=== PATIENT | female | born 1945 | race Caucasian/White ===

== ENCOUNTER → 2023-09-08 07:40 | Outpatient (REF) | payer MEDICARE, BC, SELFPAY | LOC: RAD 07:40 | PROVIDERS: ATTENDING PHYSICIAN Internal Medicine Endocrinology, Diabetes & Metabolism; FAMILY PHYSICIAN Family Medicine | DX: M81.0 Age-related osteoporosis without current pathological fracture (principal) | CPT/HCPCS: 77080 ==

== ENCOUNTER → 2023-09-25 09:50 | Outpatient (REF) | payer MEDICARE, BC, SELFPAY | LOC: RAD 09:50 | PROVIDERS: ATTENDING PHYSICIAN Internal Medicine Hematology & Oncology; FAMILY PHYSICIAN Family Medicine | DX: C50.411 Malignant neoplasm of upper-outer quadrant of right female breast (principal) | CPT/HCPCS: 74221 ==

== ENCOUNTER → 2023-10-11 06:28 | Day surgery (SDC) | payer MEDICARE, BC, SELFPAY | LOC: GI 06:28 | PROVIDERS: ATTENDING PHYSICIAN Internal Medicine Gastroenterology | DX: K22.5 Diverticulum of esophagus, acquired (principal); K22.2 Esophageal obstruction; K44.9 Diaphragmatic hernia without obstruction or gangrene; K31.89 Other diseases of stomach and duodenum; R13.10 Dysphagia, unspecified; K29.50 Unspecified chronic gastritis without bleeding | CPT/HCPCS: 43249; 88305; 88342 ==

== ENCOUNTER → 2023-11-02 09:49 | Outpatient (REF) | payer MEDICARE, BC, SELFPAY | LOC: RST 09:49 | PROVIDERS: ATTENDING PHYSICIAN Otolaryngology; FAMILY PHYSICIAN Family Medicine | DX: R13.12 Dysphagia, oropharyngeal phase (principal) | CPT/HCPCS: 74230; 92611 ==

== ENCOUNTER 2023-12-01 13:33 | Outpatient (RCR) | payer MEDICARE, BC, SELFPAY | END 2023-12-01 23:59 | disposition home or self-care (01) | LOC: RST 13:33 | PROVIDERS: ATTENDING PHYSICIAN Otolaryngology; FAMILY PHYSICIAN Family Medicine | DX: R13.12 Dysphagia, oropharyngeal phase (principal); Z85.3 Personal history of malignant neoplasm of breast | CPT/HCPCS: 92526; 92610 ==

== ENCOUNTER → 2023-12-25 06:23 | Outpatient (REF) | payer MEDICARE, BC, SELFPAY ==
[2023-12-25 07:42] LABS: Blood Urea Nitrogen 23 mg/dl (7-17); Calcium 9.9 mg/dl (8.4-10.2); Carbon Dioxide 33 mmol/L (22-30); Chloride 105 mmol/L (98-107); Glucose 86 mg/dl (70-99); Potassium 4.4 mmol/L (3.5-5.1); Sodium 142 mmol/L (135-145); eGFR > 60.00
== END ==
LOC: REG 06:23
PROVIDERS: ATTENDING PHYSICIAN Internal Medicine Gastroenterology; FAMILY PHYSICIAN Family Medicine
DX: R13.12 Dysphagia, oropharyngeal phase (principal)
CPT/HCPCS: 36415; 80048

== ENCOUNTER 2023-12-27 14:34 | Outpatient (RCR) | payer MEDICARE, BC, SELFPAY | END 2023-12-27 23:59 | disposition home or self-care (01) | LOC: RST 14:34 | PROVIDERS: ATTENDING PHYSICIAN Otolaryngology; FAMILY PHYSICIAN Family Medicine | DX: R13.12 Dysphagia, oropharyngeal phase (principal) | CPT/HCPCS: 70491; 92526; Q9967 ==

== ENCOUNTER 2024-01-01 15:56 | Outpatient (RCR) | payer MEDICARE, BC, SELFPAY | END 2024-01-01 23:59 | disposition home or self-care (01) | LOC: RST 15:56 | PROVIDERS: ATTENDING PHYSICIAN Otolaryngology; FAMILY PHYSICIAN Family Medicine | DX: R13.12 Dysphagia, oropharyngeal phase (principal); Z85.3 Personal history of malignant neoplasm of breast | CPT/HCPCS: 92526 ==

== ENCOUNTER → 2024-01-18 10:14 | Outpatient (REF) | payer MEDICARE, BC, SELFPAY | LOC: REG 10:14 | PROVIDERS: ATTENDING PHYSICIAN Otolaryngology; FAMILY PHYSICIAN Family Medicine; REFERRING PHYSICIAN Internal Medicine Gastroenterology | DX: R13.10 Dysphagia, unspecified (principal) | CPT/HCPCS: 36415; 86041 ==

== ENCOUNTER 2024-02-16 13:38 | Outpatient (RCR) | payer MEDICARE, BC, SELFPAY | END 2024-02-16 23:59 | disposition home or self-care (01) | LOC: RST 13:38 | PROVIDERS: ATTENDING PHYSICIAN Otolaryngology; FAMILY PHYSICIAN Family Medicine | DX: R13.12 Dysphagia, oropharyngeal phase (principal); Z85.3 Personal history of malignant neoplasm of breast | CPT/HCPCS: 92526 ==

== ENCOUNTER → 2024-02-19 16:10 | Outpatient (REF) | payer MEDICARE, BC, SELFPAY | LOC: RAD 16:10 | PROVIDERS: ATTENDING PHYSICIAN Family Medicine | DX: M70.22 Olecranon bursitis, left elbow (principal) | CPT/HCPCS: 73080 ==

== ENCOUNTER → 2024-03-29 06:33 | Outpatient (REF) | payer MEDICARE, BC, SELFPAY ==
[2024-03-29 07:48] LABS: % Basophils 0.7 % (0-2); % Eosinophils 2.3 % (0-6); % Immature Granulocytes 0.4 % (0-0.5); % Lymphocytes 19.3 % (20.5-51.1); % Monocytes 6.3 % (1.7-9.3); Absolute Eosinophils 0.1 10^3/uL (0-0.7); Absolute Lymphocytes 1.1 10^3/uL (1.2-3.4); Absolute Monocytes 0.4 10^3/uL (0.1-0.6); Absolute Neutrophils 3.9 10^3/uL (1.4-6.5); Mean Corp Hgb Conc. 33.3 g/dL (33.0-37.0); Mean Platelet Volume 10.4 fL (7.4-10.4); Nucleated Red Blood Cells % 0 %; Platelet Count 210 10^3/uL (130-400); Red Blood Cell Count 3.75 10^6/uL (4.20-5.40); Red Cell Dist. Width 13.3 % (11.5-14.5); White Blood Cell Count 5.6 10^3/uL (4.8-10.8)
[2024-03-29 08:30] LABS: Calcium 9.8 mg/dl (8.4-10.2); Erythrocyte Sed Rate 19 mm/hour (0-20)
[2024-03-29 08:31] LABS: ALT (SGPT) 22 U/L (0-35); AST (SGOT) 29 U/L (14-36); Albumin 3.8 g/dl (3.5-5.0); Alkaline Phosphatase 52 U/L (38-126); Blood Urea Nitrogen 22 mg/dl (7-17); Calcium 9.7 mg/dl (8.4-10.2); Carbon Dioxide 32 mmol/L (22-30); Chloride 102 mmol/L (98-107); Creatine Phosphokinase 88 U/L (30-135); Glucose 85 mg/dl (70-99); HDL Cholesterol 50 mg/dl; Iron 76 ug/dl (37-170); LDL Cholesterol, Calculated 104 mg/dl; Potassium 3.9 mmol/L (3.5-5.1); Sodium 141 mmol/L (135-145); Total Bilirubin 0.9 mg/dl (0.2-1.3); Total CK 88 U/L (30-135); Total Cholesterol 173 mg/dl (50-199); Total Protein 6.3 g/dl (6.3-8.2); Triglyceride 96 mg/dl (10-149); Very Low Density Lipoprotein 19 mg/dl (0-30); eGFR > 60.00
[2024-03-29 08:32] LABS: C-Reactive Protein < 5.00 mg/L (0.0-10.00)
[2024-03-29 08:41] LABS: Percent Saturation 27 % (20-50); Total Iron Binding Capacity 280 ug/dl (265-497)
[2024-03-29 08:49] LABS: Vitamin D, 25-OH*** 70.6 ng/mL (30-80)
[2024-03-29 09:03] LABS: TSH Reflex To Free T4 0.82 uIU/ml (0.47-4.68)
[2024-03-29 09:12] LABS: CKMB 2.5 ng/ml (0.0-2.4)
[2024-03-29 09:39] LABS: Folate > 20.0 ng/ml (2.76-20); Vitamin B12 968 pg/ml (239-931)
[2024-03-29 11:21] LABS: Syphilis/T. pallidum Ab Reflex Negative (Negative)
[2024-03-30 13:11] LABS: Intact PTH 56.5 pg/ml (13.6-85.8)
[2024-03-30 20:19] LABS: Aldolase 3.4 U/L (1.2-7.6)
[2024-03-31 03:20] LABS: Lipoprotein a (Lp a) <6 mg/dL (<=29)
[2024-04-01 02:06] LABS: SSA 52 (Ro)(ENA) Ab, IgG 21 AU/mL (0-40); SSA 60 (Ro)(ENA) Ab, IgG 0 AU/mL (0-40); SSB (La)(ENA) Ab, IgG 0 AU/mL (0-40)
== END ==
LOC: REG 06:33
PROVIDERS: ATTENDING PHYSICIAN Psychiatry & Neurology Neurology; FAMILY PHYSICIAN Family Medicine; REFERRING PHYSICIAN Internal Medicine Endocrinology, Diabetes & Metabolism
DX: M81.0 Age-related osteoporosis without current pathological fracture (principal); E78.00 Pure hypercholesterolemia, unspecified; E04.2 Nontoxic multinodular goiter; E61.1 Iron deficiency; E78.2 Mixed hyperlipidemia; Z00.00 Encounter for general adult medical examination without abnormal findings; R13.10 Dysphagia, unspecified; D51.9 Vitamin B12 deficiency anemia, unspecified; D51.8 Other vitamin B12 deficiency anemias
CPT/HCPCS: 36415; 80053; 80061; 82085; 82306; 82550; 82553; 82607; 82652; 82746; 83540; 83550; 83695; 83970; 84155; 84165; 84425; 84443; 84446; 85025; 85652; 86140; 86235; 86255; 86366; 86618; 86780

== ENCOUNTER → 2024-04-11 06:39 | Outpatient (REF) | payer MEDICARE, BC, SELFPAY | LOC: RAD 06:39 | PROVIDERS: ATTENDING PHYSICIAN Family Medicine | DX: Z87.891 Personal history of nicotine dependence (principal); Z12.2 Encounter for screening for malignant neoplasm of respiratory organs | CPT/HCPCS: 71250 ==

== ENCOUNTER → 2024-04-28 06:44 | Outpatient (REF) | payer MEDICARE, BC, SELFPAY | LOC: MRI 06:44 | PROVIDERS: ATTENDING PHYSICIAN Psychiatry & Neurology Neurology | DX: R13.10 Dysphagia, unspecified (principal) | CPT/HCPCS: 70551 ==

== ENCOUNTER 2024-06-27 17:55 | Emergency (ER) | payer MEDICARE, BC, SELFPAY ==
[2024-06-27 17:56] VITALS: BP 152/80
[2024-06-28 01:30] VITALS: BP 143/81
--- NOTE | 2024-06-28 01:31 | ED.GENMED ---
History of Present Illness
General
Chief Complaint: Musculo-Skeletal Complaint
Time Seen by Provider: 06/28/24 01:06
History of Present Illness
History of Present Illness:
Patient is a 79-year-old woman with history of esophageal restrictions, breast cancer in remission presenting to the emergency department back pain. Patient states for the past few days she has been having left lower back pain. She states that she
has been bending multiple times a day wrapping give some cleaning. She felt as if there was a lump in the back of her. She denies any redness. No fevers or chills. No numbness tingling. No saddle anesthesia no urinary retention or urinary
incontinence. She has taken Advil at home which does provide relief. Of note patient does state that she has had a 15 pound weight loss however attributed to her esophageal stricture and unable to eat. She denies any night sweats or diaphoresis.
She has been following her oncologist every 6 months and there are no concerning spots.
Past History
Past History
ED Past Medical History: Cancer
ED Past Surgical History: None
Social History
Tobacco: Non-smoker
Alcohol: None
Phy Exam
Physical Exam
Physical Exam:
GENERAL: in no acute distress
HEENT: normocephalic, extraocular movements intact, moist oral mucosa
NECK: normal inspection
Back: No midline spinal tenderness, mild tenderness over left lower back, scoliosis is evident
RESPIRATORY: no respiratory distress, clear to auscultation bilaterally
CARDIOVASCULAR: regular rate and rhythm
ABDOMEN/: soft, non-distended, non-tender to palpation, no rebound or guarding
EXTREMITIES: non-tender, no edema/swelling
NEUROLOGIC: awake and alert, moves all extremities
SKIN: warm
Course
Orders/Labs/Results
Orders:
Orders
06/27/24 18:03
CR Thoracic Spine 3 Views Urgent
Comment:
Reason For Exam: pain
Vital Signs
Initial and Last Documented VS:
Initial Vital Signs
Temp Pulse Resp BP Pulse Ox
98.0 F 86 20 152/80 98
06/27/24 17:56 06/27/24 17:56 06/27/24 17:56 06/27/24 17:56 06/27/24 17:56
Last Documented Vital Signs
Temp Pulse Resp BP Pulse Ox
98.0 F 86 20 152/80 98
06/27/24 17:56 06/27/24 17:56 06/27/24 17:56 06/27/24 17:56 06/27/24 17:56
MDM/Problems Addressed
Differential Diagnosis Includes:
Patient is a 79-year-old woman presenting to the emergency department left lower back pain. Vitals unremarkable and exam does show mild tenderness over left lower back. The area of swelling is mostly bony involvement with overlying muscle that is
slightly inflamed. X-ray was obtained prior to my evaluation which per my interpretation does show significant scoliosis. The area where she states is swollen and does follow the curvature of the x-ray of her spine. I did update patient on this
and she does state that maybe that was always there and she is noticing it today secondary to the pain. We did discuss possibility of malignancy or bony outgrowth though less likely given the x-ray is unremarkable. We did discuss obtaining CT scan
however will hold off and patient will obtain outpatient symptoms do not improve. I did offer pain control however patient declined at this time. Will discharge at this time. Will give her spine surgery follow-up in case pain worsens and patient
needs steroid shots. All questions answered. Patient stable for discharge at this time.
*Critical Care Note
Total Time (30-74mins, 75-104mins- exclusive of procedures): Not Applicable
ED Attending Note
-
Portions of this chart may have been created with voice recognition software.� Occasional wrong word or��sound alike� substitutions may have occurred due to the inherent limitations of voice recognition software.
Discharge Plan
Departure
Patient Disposition: Home (Routine Discharge)
Date of Disposition: 06/28/24
Time of Disposition: 01:29
Patient with high blood pressure during this ER visit?: No
Discharge Problem:
Back pain
Instructions: Muscle Strain (DC), Active Range of Motion Exercises, Back and Hips
Prescriptions:
No Action
apixaban [Eliquis] 2.5 MG tablet
2.5 mg PO BID
cholecalciferol (vitamin D3) 2,000 UNITS tablet
2,000 units PO DAILY
Referrals:
Rohit Jimenez Jr., DO [Family Provider] -
Christiana Rodriguez MD [Active] -
Activity Restrictions/Additional Instructions:
We discussed pain medications:
You may take Tylenol (also known as Acetaminophen) for pain.
You may take 1000mg Acetaminophen (two extra-strength tablets) per dose, which should be taken every 6-8 hours, or three times a day.
If you have normal strength Tylenol, you can take 650mg (two normal strength tablets) every 4-6 hours.
Do not take more than 3,000mg (3 grams) of Acetaminophen per day.
Never take more than as directed on the bottle.
You may also take Ibuprofen (also known as Motrin or Advil). If taking with Tylenol, alternate and take between dosing.
You may take 400-800mg of Ibuprofen per dose, which should be taken every 6-8 hours.
Do not take more than 3200mg (3.2 grams) of Ibuprofen per day.
You may also benefit from using a Lidocaine Patch (also known as 'Salon Pas'), which is an over the counter pain patch.
Place it just over the site of pain, avoiding areas of skin damage, as per instructions on the patch.
Please see your primary care doctor soon to be reevaluated and to make sure that you are improving. We have included information about establishing care with a doctor if you do not have one.
We talked about your evaluation, diagnosis, and treatment in the Emergency Department today. You must see your primary doctor for recheck and followup care in order to evaluate your progress or any changes. Have your doctor recheck the test
results/information from the ED visit. As discussed, RETURN to the ED if you develop worsening/changing symptoms or have no improvement in symptoms after the treatments provided.
Interventions
Interventions:
*Risk Screen - Suicide Last Done: 06/27/24 17:56
*General Assessment Last Done: 06/27/24 17:56
*Neglect/Abuse Screening Last Done: 06/27/24 17:56
*ED COVID-19 Vaccine History Last Done: 06/27/24 19:20
ED-Musculoskeletal Assessment Last Done: 06/27/24 19:20
Discharge Date and Time
Print Language: LAO
== END 2024-06-28 01:45 | disposition home or self-care (01) ==
LOC: EMR 17:55
PROVIDERS: EMERGENCY PHYSICIAN Student in an Organized Health Care Education/Training Program; FAMILY PHYSICIAN Family Medicine
DX: M54.50 Low back pain, unspecified (principal); M41.9 Scoliosis, unspecified; Z85.3 Personal history of malignant neoplasm of breast
CPT/HCPCS: 99283; 72072

== ENCOUNTER → 2024-07-05 10:14 | Outpatient (REF) | payer MEDICARE, BC, SELFPAY ==
[2024-07-05 16:24] LABS: Blood Urea Nitrogen 21 mg/dl (7-17); Calcium 10.1 mg/dl (8.4-10.2); Carbon Dioxide 34 mmol/L (22-30); Chloride 100 mmol/L (98-107); Glucose 89 mg/dl (70-99); Potassium 3.8 mmol/L (3.5-5.1); Sodium 140 mmol/L (135-145); eGFR > 60.00
== END ==
LOC: REG 10:14
PROVIDERS: ATTENDING PHYSICIAN Registered Nurse; FAMILY PHYSICIAN Family Medicine
DX: M54.50 Low back pain, unspecified (principal)
CPT/HCPCS: 36415; 80048

== ENCOUNTER → 2024-07-09 13:26 | Outpatient (REF) | payer MEDICARE, BC, SELFPAY | LOC: RAD 13:26 | PROVIDERS: ATTENDING PHYSICIAN Registered Nurse | DX: M54.50 Low back pain, unspecified (principal); R22.2 Localized swelling, mass and lump, trunk | CPT/HCPCS: 74177; Q9967 ==

== ENCOUNTER 2024-08-01 13:56 | Outpatient (RCR) | payer MEDICARE, BC, SELFPAY | END 2024-08-01 23:59 | disposition home or self-care (01) | LOC: RPT 13:56 | PROVIDERS: ATTENDING PHYSICIAN Registered Nurse; FAMILY PHYSICIAN Family Medicine | DX: M54.59 Other low back pain (principal); Z73.6 Limitation of activities due to disability | CPT/HCPCS: 97110; 97112; 97162 ==

== ENCOUNTER 2024-08-06 06:36 | Day surgery (SDC) | payer MEDICARE, BC, SELFPAY ==
[2024-08-06] VITALS (8 sets, daily range): BP systolic 84–106; BP diastolic 45–61; BMI 16.2
== END 2024-08-06 11:25 | disposition home or self-care (01) ==
LOC: SDS 06:36
PROVIDERS: ATTENDING PHYSICIAN Internal Medicine Gastroenterology
PROC: 0D758ZZ Dilation of Esophagus, Via Natural or Artificial Opening Endoscopic (ICD-10-PCS; 2024-08-06)
DX: K22.2 Esophageal obstruction (principal); K44.9 Diaphragmatic hernia without obstruction or gangrene
CPT/HCPCS: 43248

== ENCOUNTER → 2024-08-13 11:14 | Outpatient (REF) | payer MEDICARE, BC, SELFPAY ==
[2024-08-13 13:34] LABS: % Basophils 0.3 % (0-2); % Eosinophils 0.1 % (0-6); % Immature Granulocytes 0.8 % (0-0.5); % Lymphocytes 6.2 % (20.5-51.1); % Neutrophils 85.6 % (42.2-75.2); Absolute Basophils 0.1 10^3/uL (0-0.2); Absolute Immature Granulocytes 0.1 10^3/uL (0-0.05); Absolute Lymphocytes 1.1 10^3/uL (1.2-3.4); Absolute Monocytes 1.3 10^3/uL (0.1-0.6); Absolute Neutrophils 15.8 10^3/uL (1.4-6.5); Hematocrit 32.2 % (37.0-47.0); Hemoglobin 10.8 g/dL (12.0-16.0); Mean Corp Hgb Conc. 33.5 g/dL (33.0-37.0); Mean Corpuscular Hgb 32.2 pg (27.0-31.0); Mean Corpuscular Volume 96.1 fL (81.0-99.0); Nucleated Red Blood Cells % 0 %; Platelet Count 455 10^3/uL (130-400); Red Blood Cell Count 3.35 10^6/uL (4.20-5.40); Red Cell Dist. Width 13.2 % (11.5-14.5); White Blood Cell Count 18.4 10^3/uL (4.8-10.8)
[2024-08-13 14:44] LABS: ALT (SGPT) 46 U/L (0-35); AST (SGOT) 39 U/L (14-36); Albumin 3.2 g/dl (3.5-5.0); Alkaline Phosphatase 126 U/L (38-126); Blood Urea Nitrogen 18 mg/dl (7-17); Calcium 9.6 mg/dl (8.4-10.2); Carbon Dioxide 31 mmol/L (22-30); Chloride 93 mmol/L (98-107); Glucose 79 mg/dl (70-99); Potassium 4.1 mmol/L (3.5-5.1); Sodium 135 mmol/L (135-145); Total Bilirubin 1.2 mg/dl (0.2-1.3); Total Protein 6.6 g/dl (6.3-8.2); eGFR > 60.00
== END ==
LOC: REG 11:14
PROVIDERS: ATTENDING PHYSICIAN Nurse Practitioner Adult Health
DX: R05.1 Acute cough (principal)
CPT/HCPCS: 36415; 71046; 80053; 85025

== ENCOUNTER → 2024-09-18 06:19 | Outpatient (REF) | payer MEDICARE, BC, SELFPAY ==
[2024-09-18 07:12] LABS: % Basophils 1.1 % (0-2); % Eosinophils 2.7 % (0-6); % Immature Granulocytes 0.4 % (0-0.5); % Lymphocytes 31.3 % (20.5-51.1); % Monocytes 7.3 % (1.7-9.3); % Neutrophils 57.2 % (42.2-75.2); Absolute Basophils 0.1 10^3/uL (0-0.2); Absolute Eosinophils 0.1 10^3/uL (0-0.7); Absolute Lymphocytes 1.4 10^3/uL (1.2-3.4); Absolute Monocytes 0.3 10^3/uL (0.1-0.6); Absolute Neutrophils 2.6 10^3/uL (1.4-6.5); Hematocrit 35.7 % (37.0-47.0); Hemoglobin 11.1 g/dL (12.0-16.0); Mean Corp Hgb Conc. 31.1 g/dL (33.0-37.0); Mean Corpuscular Hgb 30.6 pg (27.0-31.0); Mean Corpuscular Volume 98.3 fL (81.0-99.0); Mean Platelet Volume 9.2 fL (7.4-10.4); Nucleated Red Blood Cells % 0 %; Platelet Count 259 10^3/uL (130-400); Red Blood Cell Count 3.63 10^6/uL (4.20-5.40); White Blood Cell Count 4.5 10^3/uL (4.8-10.8)
[2024-09-18 07:44] LABS: ALT (SGPT) 16 U/L (0-35); AST (SGOT) 28 U/L (14-36); Albumin 3.4 g/dl (3.5-5.0); Alkaline Phosphatase 62 U/L (38-126); Blood Urea Nitrogen 14 mg/dl (7-17); Calcium 9.6 mg/dl (8.4-10.2); Carbon Dioxide 33 mmol/L (22-30); Chloride 105 mmol/L (98-107); Glucose 87 mg/dl (70-99); HDL Cholesterol 56 mg/dl; LDL Cholesterol, Calculated 108 mg/dl; Total Bilirubin 1.1 mg/dl (0.2-1.3); Total Cholesterol 188 mg/dl (50-199); Total Protein 6.6 g/dl (6.3-8.2); Triglyceride 122 mg/dl (10-149); Very Low Density Lipoprotein 24 mg/dl (0-30); eGFR > 60.00
[2024-09-18 07:53] LABS: Sodium 140 mmol/L (135-145)
== END ==
LOC: RAD 06:19
PROVIDERS: ATTENDING PHYSICIAN Family Medicine
DX: E78.00 Pure hypercholesterolemia, unspecified (principal); D64.9 Anemia, unspecified; Z13.1 Encounter for screening for diabetes mellitus; Z87.01 Personal history of pneumonia (recurrent); R05.1 Acute cough
CPT/HCPCS: 36415; 71046; 80053; 80061; 82728; 85025

== ENCOUNTER → 2024-09-24 10:19 | Outpatient (REF) | payer MEDICARE, BC, SELFPAY | LOC: HWRAD 10:19 | PROVIDERS: ATTENDING PHYSICIAN Family Medicine | DX: R93.89 Abnormal findings on diagnostic imaging of other specified body structures (principal) | CPT/HCPCS: 71250 ==

== ENCOUNTER 2024-09-30 09:38 | Outpatient (RCR) | payer MEDICARE, BC, SELFPAY | END 2024-09-30 23:59 | disposition home or self-care (01) | LOC: RPT 09:38 | PROVIDERS: ATTENDING PHYSICIAN Registered Nurse; FAMILY PHYSICIAN Family Medicine | DX: M54.59 Other low back pain (principal); Z73.6 Limitation of activities due to disability | CPT/HCPCS: 72148; 97010; 97110; 97112 ==

== ENCOUNTER → 2024-10-09 13:38 | Outpatient (REF) | payer MEDICARE, BC, SELFPAY | LOC: RAD 13:38 | PROVIDERS: ATTENDING PHYSICIAN Internal Medicine Endocrinology, Diabetes & Metabolism; FAMILY PHYSICIAN Family Medicine | DX: E04.2 Nontoxic multinodular goiter (principal) | CPT/HCPCS: 76536 ==

== ENCOUNTER 2024-10-23 09:48 | Outpatient (RCR) | payer MEDICARE, BC, SELFPAY | END 2024-10-23 23:59 | disposition home or self-care (01) | LOC: RPT 09:48 | PROVIDERS: ATTENDING PHYSICIAN Registered Nurse; FAMILY PHYSICIAN Family Medicine | DX: M54.59 Other low back pain (principal); Z73.6 Limitation of activities due to disability; M62.81 Muscle weakness (generalized); M41.9 Scoliosis, unspecified; Z85.3 Personal history of malignant neoplasm of breast | CPT/HCPCS: 97110; 97112 ==

== ENCOUNTER → 2024-11-04 12:16 | Outpatient (REF) | payer MEDICARE, BC, SELFPAY | LOC: HWRAD 12:16 | PROVIDERS: ATTENDING PHYSICIAN Internal Medicine Critical Care Medicine; FAMILY PHYSICIAN Family Medicine | DX: R91.1 Solitary pulmonary nodule (principal) | CPT/HCPCS: 71250 ==

== ENCOUNTER 2024-11-11 08:40 | Outpatient (RCR) | payer MEDICARE, BC, SELFPAY | END 2024-11-11 14:53 | disposition home or self-care (01) | LOC: RPT 08:40 | PROVIDERS: ATTENDING PHYSICIAN Registered Nurse; FAMILY PHYSICIAN Family Medicine | DX: M54.59 Other low back pain (principal); M62.81 Muscle weakness (generalized); M41.9 Scoliosis, unspecified; Z85.3 Personal history of malignant neoplasm of breast; Z73.6 Limitation of activities due to disability | CPT/HCPCS: 97110; 97112 ==

== ENCOUNTER → 2024-12-30 06:30 | Outpatient (REF) | payer MEDICARE, BC, SELFPAY | LOC: RAD 06:30 | PROVIDERS: ATTENDING PHYSICIAN Internal Medicine Cardiovascular Disease; FAMILY PHYSICIAN Family Medicine | DX: I65.23 Occlusion and stenosis of bilateral carotid arteries (principal) | CPT/HCPCS: 93880 ==

== ENCOUNTER → 2025-04-01 06:32 | Outpatient (REF) | payer MEDICARE, BC, SELFPAY ==
[2025-04-01 07:44] LABS: Hematocrit 41.3 % (37.0-47.0); Hemoglobin 13.6 g/dL (12.0-16.0); Mean Corp Hgb Conc. 32.9 g/dL (33.0-37.0); Mean Corpuscular Volume 99.5 fL (81.0-99.0); Nucleated Red Blood Cells % 0 %; Platelet Count 258 10^3/uL (130-400); Red Cell Dist. Width 13.1 % (11.5-14.5)
[2025-04-01 08:02] LABS: ALT (SGPT) 22 U/L (0-35); AST (SGOT) 24 U/L (14-36); Albumin 4.2 g/dl (3.5-5.0); Alkaline Phosphatase 47 U/L (38-126); Blood Urea Nitrogen 20 mg/dl (7-17); Calcium 10.2 mg/dl (8.4-10.2); Carbon Dioxide 31 mmol/L (22-30); Chloride 106 mmol/L (98-107); Glucose 89 mg/dl (70-99); HDL Cholesterol 58 mg/dl; Iron 119 ug/dl (37-170); LDL Cholesterol, Calculated 126 mg/dl; Potassium 4.1 mmol/L (3.5-5.1); Sodium 140 mmol/L (135-145); Total Protein 6.8 g/dl (6.3-8.2); Very Low Density Lipoprotein 22 mg/dl (0-30); eGFR > 60.00
[2025-04-01 08:14] LABS: Total Iron Binding Capacity 335 ug/dl (265-497)
[2025-04-01 08:22] LABS: Vitamin D, 25-OH*** 54.5 ng/mL (30-80)
[2025-04-01 08:33] LABS: Ferritin 40.7 ng/ml (11.1-264.0)
== END ==
LOC: REG 06:32
PROVIDERS: ATTENDING PHYSICIAN Family Medicine; FAMILY PHYSICIAN Internal Medicine Endocrinology, Diabetes & Metabolism; REFERRING PHYSICIAN Internal Medicine Cardiovascular Disease
DX: E78.00 Pure hypercholesterolemia, unspecified (principal); D64.9 Anemia, unspecified; Z13.1 Encounter for screening for diabetes mellitus; Z13.29 Encounter for screening for other suspected endocrine disorder; E55.9 Vitamin D deficiency, unspecified; M81.0 Age-related osteoporosis without current pathological fracture
CPT/HCPCS: 36415; 80053; 80061; 82306; 82728; 83540; 83550; 84443; 85025

== ENCOUNTER → 2025-05-13 10:54 | Outpatient (REF) | payer MEDICARE, BC, SELFPAY | LOC: RAD 10:54 | PROVIDERS: ATTENDING PHYSICIAN Internal Medicine Critical Care Medicine; FAMILY PHYSICIAN Family Medicine | DX: R91.1 Solitary pulmonary nodule (principal) | CPT/HCPCS: 71250 ==

== ENCOUNTER → 2025-06-08 11:25 | Outpatient (REF) | payer MEDICARE, BC, SELFPAY | LOC: PAVMRI 11:25 | PROVIDERS: ATTENDING PHYSICIAN Nurse Practitioner; FAMILY PHYSICIAN Family Medicine | DX: M54.16 Radiculopathy, lumbar region (principal) | CPT/HCPCS: 72148 ==